=== PATIENT | female | born 1970 | race Caucasian/White ===

== ENCOUNTER 2018-07-03 18:17 | Emergency (ER) | payer OTHER ==
[2018-07-03 18:36] VITALS: BP 116/55; PULSE 69; RESP 16; TEMP 98.2
[2018-07-03] MEDS ORDERED: DIPH,PERTUS(ACELL)TETVAC-LF 0.5 ML VIAL IM ONE (20:12)
--- NOTE | 2018-07-03 20:26 | ED ---
Skin/Abscess/FB HPI - General Chief complaint: Skin/Abscess/Foreign Body Stated complaint: left leg laceration Time Seen by Provider: 07/03/18 19:45 Source: patient, RN notes reviewed Mode of arrival: ambulatory Limitations: no limitations - History of Present Illness Initial comments: 47-year-old female with a chief complaint of abrasion to the left knee. Patient states she was walking by a piece of metal when she scraped her left knee. Patient states she has had liver failure in the past and her doctor is concerned about infection. Patient states she knows she does not need stitches and does not need x-rays but is not up-to-date on tetanus. Patient would like a tetanus vaccination today. Patient denies any fevers or chills at home. Patient denies any pain in the left knee or leg.Patient has no other complaints at this time including shortness of breath, chest pain, abdominal pain, nausea or vomiting, headache, or visual changes. - Related Data Allergies Allergy/AdvReac Type Severity Reaction Status Date / Time No Known Allergies Allergy Verified 07/03/18 18:33 Review of Systems ROS Statement: Those systems with pertinent positive or pertinent negative responses have been documented in the HPI. ROS Other: All systems not noted in ROS Statement are negative. Past Medical History Additional Past Medical History / Comment(s): liver failure History of Any Multi-Drug Resistant Organisms: None Reported Past Surgical History: Orthopedic Surgery Past Psychological History: No Psychological Hx Reported Smoking Status: Never smoker Past Alcohol Use History: Abuse, Daily Past Drug Use History: None Reported General Exam Limitations: no limitations General appearance: alert, in no apparent distress Head exam: Present: atraumatic, normocephalic, normal inspection Eye exam: Present: normal appearance, PERRL, EOMI. Absent: scleral icterus, conjunctival injection, periorbital swelling ENT exam: Present: normal exam, mucous membranes moist Neck exam: Present: normal inspection. Absent: tenderness, meningismus, lymphadenopathy Respiratory exam: Present: normal lung sounds bilaterally. Absent: respiratory distress, wheezes, rales, rhonchi, stridor Cardiovascular Exam: Present: regular rate, normal rhythm, normal heart sounds. Absent: systolic murmur, diastolic murmur, rubs, gallop, clicks Extremities exam: Present: full ROM (Full range of motion of the left knee and lower extremity), tenderness (No tenderness in the left near lower extremity besides over the abrasion), normal capillary refill (Capillary refill less than 2 seconds and pedal pulse 2+.), other (There is a 3 cm x 3 cm abrasion just below the left knee. No foreign bodies noted. Abrasion is superficial. Patient is ambulating without difficulty.). Absent: calf tenderness (No tenderness in the calf, negative Homans sign, no erythema swelling or increased warmth.) Course Vital Signs 07/03/18 18:33 Temperature 98.2 F Pulse Rate 69 Respiratory 16 Rate Blood Pressure 116/55 O2 Sat by Pulse 98 Oximetry Medical Decision Making - Medical Decision Making 47-year-old female since to the emergency department for a chief complaint of abrasion to the left lower leg. It is about 3 cm x 3 cm. Patient states she was walking when she hit it on a piece of metal. Patient denies pain otherwise. Patient ambulating without difficulty full range of motion in the lower extremity. No tenderness in the knee or tib-fib in the left lower extremity. Neurovascular intact. X-rays are not indicated at this time without tenderness or pain with range of motion. Discussed with pharmacy about giving tetanus as patient does have liver failure and pharmacist states this is fine. She was given tetanus. Patient is not on any immunosuppressant drugs. She will follow up with primary care in 1-2 days. She will return to the emergency Department if she has any worsening symptoms or signs of infection. Disposition Clinical Impression: Abrasion Disposition: HOME SELF-CARE Condition: Good Instructions: Abrasion (ED) Additional Instructions: Please keep the area clean. Please watch for any signs of infection such as spreading redness streaking redness or fever and return if these occur. Follow- up with primary care in 1-2 days. Is patient prescribed a controlled substance at d/c from ED?: No Referrals: Nonstaff,Physician [Primary Care Provider] - 1-2 days Time of Disposition: 20:25
== END 2018-07-03 21:01 | disposition home or self-care (01) ==
LOC: EC 18:17
DX: S80.812A Abrasion, left lower leg, initial encounter (principal); Z23 Encounter for immunization; W22.8XXA Striking against or struck by other objects, initial encounter; Y93.01 Activity, walking, marching and hiking
CPT/HCPCS: 90471; 90715; 99282